=== PATIENT | female | born 1975 | race Caucasian/White ===

== ENCOUNTER 2017-10-31 07:51 | Emergency (ER) | payer BC ==
[2017-10-31 08:06] VITALS: BP 147/89
--- NOTE | 2017-10-31 08:25 | UC ---
Knee Pain HPI - HPI Summary HPI Summary: 42 yo female was walking yesterday and her right knee popped unable to bear wt using crutches knee swollen pain medially unable to fully straighten - History of Current Complaint Chief Complaint: UCLowerExtremity Stated Complaint: KNEE INJURY Time Seen by Provider: 10/31/17 08:08 Hx Obtained From: Patient Hx Last Menstrual Period: 10/25/17 Onset/Duration: Sudden Onset, Lasting Hours Severity Initially: Moderate Severity Currently: Moderate Pain Intensity: 3 Pain Scale Used: 0-10 Numeric Character: Dull, Aching, Throbbing Aggravating Factor(s): Movement, Weight Bearing Alleviating Factor(s): Rest Associated Signs And Symptoms: Positive: Swelling Able to Bear Weight: No - Allergies/Home Medications Allergies/Adverse Reactions: Allergies Allergy/AdvReac Type Severity Reaction Status Date / Time No Known Allergies Allergy Verified 10/31/17 08:07 Home Medications: Home Medications NK [No Home Medications Reported] 10/31/17 [History Confirmed 10/31/17] PMH/Surg Hx/FS Hx/Imm Hx Previously Healthy: Yes - Surgical History Surgical History: Yes Surgery Procedure, Year, and Place: x3 - Family History Known Family History: Positive: Hypertension - Social History Alcohol Use: Occasionally Substance Use Type: None Smoking Status (MU): Never Smoked Tobacco - Immunization History Most Recent Tetanus Shot: unknown Review of Systems Constitutional: Negative Skin: Negative Eyes: Negative ENT: Negative Respiratory: Negative Cardiovascular: Negative Gastrointestinal: Negative Genitourinary: Negative Motor: Negative Neurovascular: Negative Musculoskeletal: Arthralgia Neurological: Negative Psychological: Negative Is Patient Immunocompromised?: No All Other Systems Reviewed And Are Negative: Yes Physical Exam Triage Information Reviewed: Yes Appearance: Well-Appearing, No Pain Distress, Well-Nourished Vital Signs: Initial Vital Signs Temp 98.8 F 10/31/17 08:00 Pulse 69 10/31/17 08:00 Resp 18 10/31/17 08:00 BP 147/89 10/31/17 08:00 Pulse Ox 98 10/31/17 08:00 Vital Signs Reviewed: Yes Eyes: Positive: Conjunctiva Clear ENT: Negative: Nasal congestion, Nasal drainage, Trismus, Muffled voice, Hoarse voice Neck: Positive: Supple Respiratory: Positive: Lungs clear, Normal breath sounds, No respiratory distress, No accessory muscle use Cardiovascular: Positive: RRR, No Murmur Musculoskeletal: Positive: Other: - right knee effusion/tender medial joint line /unable to fully extend Neurological: Positive: Alert Psychological Exam: Normal Skin Exam: Normal Diagnostics - Radiology No standard instances Xray Interpretation: No Acute Changes - mild DJD Radiology Interpretation Completed By: Radiologist Knee Pain Course/Dx - Differential Dx/Diagnosis Provider Diagnoses: right knee medial meniscus tear Discharge - Discharge Plan Condition: Stable Disposition: HOME Patient Education Materials: Meniscus Tear (ED) Referrals: Zoey Saravia MD [Medical Doctor] - As Soon As Possible Additional Instructions: rest elevate ice I suggest a hinged knee brace crutches advil 2-3 4x day with food as needed for pain
--- NOTE | 2017-10-31 09:29 | RAD ---
HISTORY: Right knee pain COMPARISONS: None VIEWS: 4, Frontal, lateral, axial, and oblique views of the right knee FINDINGS: BONE DENSITY: Normal. BONES: There is no displaced fracture. There is superior patellar enthesophyte. JOINTS: There is mild medial compartment joint space narrowing with osteophyte formation. There is no suprapatellar joint effusion or lipohemarthrosis. ALIGNMENT: There is no dislocation. SOFT TISSUES: Unremarkable. OTHER FINDINGS: None. IMPRESSION: MINIMAL OSTEOARTHRITIS. NO ACUTE OSSEOUS INJURY. IF SYMPTOMS PERSIST, RECOMMEND REPEAT IMAGING.
== END 2017-10-31 09:48 | disposition home or self-care (01) ==
LOC: UCEAST 07:51
DX: S83.241A Other tear of medial meniscus, current injury, right knee, initial encounter (principal); X58.XXXA Exposure to other specified factors, initial encounter; Y93.01 Activity, walking, marching and hiking; Y92.9 Unspecified place or not applicable; M17.11 Unilateral primary osteoarthritis, right knee
CPT/HCPCS: 99212; G0463

== ENCOUNTER 2020-11-03 11:44 | Observation (INO) ==
[~2020-11-03 11:44] MED LIST: HYDROmorphone PCA 1 MG/ML Titrat per Protocol PCA SCH
[2020-11-03 12:37] LABS: ABS Basophils 0.1 10^3/ul (0-0.2); ABS Eosinophils 0.2 10^3/ul (0-0.6); ABS Lymphocytes 1.5 10^3/ul (1.0-4.8); ABS Monocytes 0.3 10^3/ul (0-0.8); ABS Neutrophils 4.2 10^3/ul (1.5-7.7); Eosinophil % 2.4 %; Hematocrit 29 % (35-47); Hemoglobin 9.1 g/dL (12.0-16.0); Lymphocyte % 24.6 %; Mean Corpuscular HGB Conc 31 g/dL (31-36); Mean Corpuscular Hemoglobin 21 pg (27-31); Mean Corpuscular Volume 66 fL (80-97); Mean Platelet Volume 9.2 fL (7.4-10.4); Platelet Count 291 10^3/uL (150-450); Red Blood Count 4.37 10^6 /uL (3.70-4.87); Red Cell Distribution Width 19 % (10-15); White Blood Count 6.3 10^3/uL (3.5-10.8)
[2020-11-03 12:55] LABS: Activated Partial Thrombo Time 26.5 seconds (26.0-38.0); INR 1.09 (0.82-1.09)
[2020-11-03 12:59] LABS: HCG Pregnancy < 0.60 mIU/mL
[2020-11-03] MEDS ORDERED: Clindamycin 900 MG/D5W BAG IVPB ONE (13:00)
[2020-11-03 13:01] LABS: Anion Gap 8 mmol/L (2-11); BUN/Creatinine Ratio 21.9 (8-20); Blood Urea Nitrogen 14 mg/dL (6-24); CO2 Carbon Dioxide 23 mmol/L (22-32); Calcium 9.3 mg/dL (8.6-10.3); Chloride 107 mmol/L (101-111); EGFR African American 121.4 (>60); EGFR Non-African American 100.3 (>60); Glucose 98 mg/dL (70-100); Potassium 3.6 mmol/L (3.5-5.0); Sodium 138 mmol/L (135-145)
[2020-11-03] MEDS ORDERED: oxyCODONE SR 10 mg TAB ONE (13:33)
[2020-11-03] MEDS ORDERED: Ondansetron 4 mg VIAL 2 MG/ML 2 ml VIAL ONE (13:34)
[2020-11-03] MEDS ORDERED: Iohexol 350 (CONTRAST) 200 ML MDV IV ONE (13:56)
[2020-11-03] MEDS ORDERED: Heparin 2 UNITS/ML 1000 mls 2,000 ML IV ONE (13:56)
[2020-11-03] MEDS ORDERED: Lidocaine 1% VIAL 10 MG/ML VIAL ONE (13:56)
[2020-11-03] MEDS ORDERED: fentaNYL 250 mcg/5 ml 50 MCG/ML 5 ml VIAL (250 MCG) ONE (14:16)
[2020-11-03] MEDS ORDERED: Midazolam 5 mg/5 ml VIAL 1 mg/ml 5 ml VIAL (5 mg) ONE ×2 (14:16→16:00)
[2020-11-03] MEDS ORDERED: nitroGLYCERIN DRIP 25,000 MCG/250 ML BTL ONE (14:16)
[2020-11-03] MEDS ORDERED: HYDROmorphone 1 MG/1 ML SYRINGE ONE ×3 (15:24→17:15)
[2020-11-03] MEDS ORDERED: fentaNYL 100 mcg/2 ml 50 MCG/ML VIAL ONE ×2 (15:34→16:17)
[2020-11-03] MEDS: NS 0.9% 1000 ml BAG 1,000 ML IV SCH (16:49)
[2020-11-03] MEDS ORDERED: Lorazepam PYXIS KEY PRN (18:30)
[2020-11-03] MEDS ORDERED: LORazepam 2 mg VIAL 1 ml IV PUSH PRN (18:30)
[2020-11-03] MEDS: Ondansetron 4 mg VIAL 2 MG/ML 2 ml VIAL IV SCH (23:37)
[2020-11-04] MEDS: NS 0.9% 1000 ml BAG 1,000 ML IV SCH (00:45)
[2020-11-04] MEDS: Ondansetron 4 mg VIAL 2 MG/ML 2 ml VIAL IV SCH (06:22)
[2020-11-04] MEDS ORDERED: HYDROcodone/ACETAMIN 5/325 mg TAB PO PRN ×2 (08:47)
[2020-11-04 11:41] VITALS: BP 141/69
[2020-11-04] MEDS ORDERED: Ketorolac 10 mg TAB (NF) PO SCH (12:00)
== END 2020-11-04 12:15 | disposition home or self-care (01) ==
LOC: CHICATH 11:44 → SSU 11:44
PROVIDERS: ADMIT Internal Medicine; ATTEND Internal Medicine
PROC: ANG.UFE (2020-11-03 13:10)